=== PATIENT | male | born 1950 | race Two or more races ===

== ENCOUNTER 2024-06-21 20:36 | Emergency (ER) | payer MEDICARE, OTHER ==
[~2024-06-21] VITALS: Ht 165.1 cm; Wt 72.7 kg
--- NOTE | 2024-06-21 21:28 | ED.PDOC ---
Altered Mental Status HPI Comments 73 y.o male with PMHx of DM and Leukemia, presents to the ED via EMS for an evaluation of ALOC. EMS states patient's family called 911 after reporting that patient has been altered since 1229 and is only alert to self on scene. Family reported patient had a fall back in April of 2024, became weak on the left side, had another fall recently about a week ago which increased his weakness and was complaining of neck, back and pelvic pain. Patient was placed in a C- collar by EMS on scene for stability. Upon ED arrival, patient is altered and is unable to determine pain region or rate at this time. Chief Complaint: ALOC Time Seen by MD: 21:05 Reviewed Notes: Nurses Notes, Therapist'S Assistant Notes, Medications, Allergies Information Source: Emergency Med Personnel Mode of Arrival: EMS Severity: Moderate Timing: Hours Duration: Since onset Quality: Decreased Alertness, Change in Behavior Recent: Other History of: Diabetes Associated Signs and Symptoms: Other Past Medical History PAST MEDICAL HISTORY: Cancer, DM Surgical History: Unknown Family History Family History: Reviewed,noncontributory to illness Social History Smoker: Non-Smoker Alcohol: Denies ETOH Use Drugs: Denies Drug Use Lives In: Home Unable to Obtain due to: Altered Mental Status Physical Exam General Appearance: No Apparent Distress, Normal HEENT: Normal ENT Inspection, Pharynx Normal, TMs Normal Neck: Full Range of Motion, Non-Tender, Normal, Normal Inspection Respiratory: Chest Non-Tender, Lungs Clear, No Accessory Muscle Use, No Respiratory Distress, Normal Breath Sounds Cardiovascular: No Edema, No JVD, No Murmur, No Gallop, Normal Peripheral Pulses, Regular Rate/Rhythm Breast Exam: Deferred Gastrointestinal: No Organomegaly, Non Tender, No Pulsatile Mass, Normal Bowel Sounds, Soft Genitalia: Deferred Pelvic: Deferred Rectal: Deferred Extremities: No calf tenderness, Normal capillary refill, Normal inspection, Normal range of motion, Non-tender, No pedal edema Musculoskeletal : Apperance: Normal Neurologic: Alert, track laborer II-XII nml as Tested, Normal Affect, Normal Mood, No Sensory Deficits, Other (left sided weakness ) Cerebellar Function: Normal Reflexes: Normal Skin: Bruises (left eyebrow ) Lymphatic: No Adenopathy Was a procedure done? Was a procedure done?: No Differential Diagnosis (ALOC) Differential Diagnosis: Dehydration, Closed Head Injury, Mass Lesion X-Ray, Labs, Meds, VS Vital Signs Date Time Temp Pulse Resp B/P (MAP) Pulse Ox O2 Delivery O2 Flow Rate FiO2 06/21/24 23:00 Room Air* 0 21 06/21/24 20:50 98.8 108 20 148/60 (89) 98 Lab Test 06/21/24 21:35 Range/Units White Blood Count 7.2 4.4-10.8 10^3/uL Red Blood Count 3.24 L 4.5-5.90 10^6/uL Hemoglobin 8.0 L 13.5-17.5 g/dL Hematocrit 26.0 L 41.0-53.0 % Mean Corpuscular Volume 80.2 80.0-100.0 fL Mean Corpuscular Hemoglobin 24.8 L 28.0-32.0 pg Mean Corpuscular Hemoglobin Concent 31.0 L 32.0-36.0 g/dL Red Cell Distribution Width 20.8 H 11.8-14.3 % Platelet Count 121 L 140-450 10^3/uL Mean Platelet Volume 8.6 6.9-10.8 fL Neutrophils (%) (Auto) 37.0-80.0 % Lymphocytes (%) (Auto) 10.0-50.0 % Monocytes (%) (Auto) 0.0-12.0 % Basophils (%) (Auto) 0.0-2.0 % Neutrophils # (Auto) 1.6-8.6 10 ^3/uL Lymphocytes # (Auto) 0.4-5.4 10 ^3/uL Monocytes # (Auto) 0-1.3 10 ^3/uL Differential Total Cells Counted 100.0 100 Immature Granulocytes % 2 Neutrophils % (Manual) 66 37.0-80.0 Band Neutrophils % (Manual) 0 Lymphocytes % (Manual) 13 10.0-50.0 Monocytes % (Manual) 21 H 0-12 Eosinophils % (Manual) 0 0-7 Basophils % (Manual) 0 0.0-2.0 Metamyelocytes % (manual) 0 Myelocytes % (Manual) 0 Promyelocytes % (Manual) 0 Blast Cells % (Manual) 0 Reactive Lymphocytes 0 Platelet Estimate Decreased Large Platelets Few Hypochromasia (manual) Slight Anisocytosis (manual) Moderate Sodium Level 138 136-145 mmol/L Potassium Level 4.3 3.5-5.1 mmol/L Chloride Level 103 98-107 mmol/L Carbon Dioxide Level 27 20-31 mmol/L Anion Gap 8 5-15 Blood Urea Nitrogen 16 9-23 mg/dL Creatinine 0.61 L 0.700-1.30 mg/dL Glomerular Filtration Rate Calc 100 >90 mL/min BUN/Creatinine Ratio 26.2 H 10.0-20.0 Serum Glucose 185 H 74-106 mg/dL Calcium Level 9.5 8.7-10.4 mg/dL Total Bilirubin 0.9 0.2-1.0 mg/dL Aspartate Amino Transferase (AST) 16 13-40 U/L Alanine Aminotransferase (ALT) < 9 7-40 U/L Alkaline Phosphatase 118 H 46-116 U/L Ammonia < 10 L 11-32 umol/L Total Protein 6.7 5.7-8.2 g/dL Albumin 3.5 3.2-4.8 g/dL X-Ray, Labs, Meds, VS Comment CT head CT scan shows large subdural hematoma noted on the right side measuring approximately 3 cm. There is a 8 mm leftward midline shift. Spoke with Dr. Novoa at [facility], they will accept transfer for higher level of care Patient will be transferred with the [facility] air unit. Time of 1ST Reevaluation: 21:19 Reevaluation 1ST: Improved Patient Education/Counseling: Diagnosis, Treatment, Other (patient is altered) Family Education/Counseling: Diagnosis, No Family Present Departure 1 Departure Time of Disposition: 23:37 Impression: Primary Impression: Altered mental status Qualified Codes: R41.0 - Disorientation, unspecified Additional Impression: Subdural hematoma Disposition: 04 INTERMEDIATE CARE FACILITY Condition: Guarded Critical Care Note Critical Care Time?: No Stability Stability form required: No I personally scribed for ROCIO PIERRE ([email or web address]) on 06/21/24 at 21:28. Electronically submitted by Venice Graff ([facility]). ROCIO PIERRE Jun 21, 2024 21:28
[2024-06-21 21:55] LABS: Mean Corpuscular Hemoglobin 24.8 pg (28.0-32.0); Mean Corpuscular Volume 80.2 fL (80.0-100.0); Platelet Count (auto) 121 10^3/uL (140-450); Red Blood Cells 3.24 10^6/uL (4.5-5.90); White Blood Cell 7.2 10^3/uL (4.4-10.8)
[2024-06-21 21:56] LABS: Red Cell Distribution Width 20.8 % (11.8-14.3)
[2024-06-21 21:57] LABS: Band Neutrophils % (manual) 0; Basophils % (manual) 0 (0.0-2.0); Blast Cells 0; Eosinophils % (manual) 0 (0-7); Metamyelocytes % 0; Myelocytes % 0; Promyelocytes % 0; Reactive Lymphocytes 0
[2024-06-21 22:04] LABS: Alanine Aminotransferase < 9 U/L (7-40); Albumin 3.5 g/dL (3.2-4.8); Alkaline Phosphatase 118 U/L (46-116); Anion Gap 8 (5-15); Aspartate Aminotransferase 16 U/L (13-40); BUN/Creatinine Ratio 26.2 (10.0-20.0); Bilirubin, Total 0.9 mg/dL (0.2-1.0); Blood Urea Nitrogen 16 mg/dL (9-23); Calcium 9.5 mg/dL (8.7-10.4); Carbon Dioxide 27 mmol/L (20-31); Chloride 103 mmol/L (98-107); Glucose 185 mg/dL (74-106); Potassium 4.3 mmol/L (3.5-5.1); Sodium 138 mmol/L (136-145); Total Protein 6.7 g/dL (5.7-8.2)
--- NOTE | 2024-06-21 22:29 | DVH ---
EXAM: CT HEAD WITHOUT CONTRAST INDICATION: aloc TECHNIQUE: CT of the head without intravenous contrast. Radiation Dose : 1. Head: CT Dose: CTDI volume is 63.04 mGy. Dose-length product is 1771.51 mGy*cm The dose indicators for CT are the volume Computed Tomography (CT) Dose Index (CTDIvol) and the Dose Length Product (DLP), and are measured in units of mGy and mGy-cm, respectively. These indicators are not patient dose, but values generated from the CT scanner acquisition factors. The report includes radiation exposure data for exposures received during this examination. COMPARISON: None FINDINGS: Dense acute right subdural hematoma measuring up to 3 cm in diameter. There is effacement of the fredis cent sulci and 8 mm leftward midline shift. Patchy periventricular and subcortical white matter hypoattenuation is nonspecific but may be related to small vessel ischemic disease. The visualized paranasal sinuses and mastoid air cells are clear. The surrounding soft tissues and osseous structures are unremarkable. IMPRESSION: 1. Dense acute right subdural hematoma measuring up to 3 cm in diameter with mass-effect including an 8 mm leftward midline shift. 2. Radiation optimization: All CT scans at this facility use at least one of these dose optimization techniques: automated exposure control mA and/or kV adjustment per patient size (includes targeted e xams where dose is matched to clinical indication) or iterative reconstruction. Critical findings discussed with SALBADOR Pacheco by Dr. Major via phone on 06/21/2024 10:25 PM.
--- NOTE | 2024-06-21 22:33 | DVH ---
EXAM: CT CERVICAL WITHOUT CONTRAST INDICATION: aloc EXAM DATE: 06/21/2024 10:04 PM COMPARISON: None TECHNIQUE: Multiple axial CT images of the cervical spine were obtained using bone algorithm. Axial a nd coronal reformatting was done. Bone and soft tissue windows were reviewed. Radiation Dose Information: CT Dose: CTDI volume is 23 mGy. Dose-length product is 1772 mGy*cm FINDINGS: The cervical alignment is intact. No acute cervical spine fracture is identified. The vertebral body heights are intact. No suspicious osseous lesions are identified. Moderate degenerative changes throughout the cervical spine There is no prevertebral soft tissue swelling. IMPRESSION: 1. No evidence of acute cervical spine fracture or traumatic malalignment. 2. All CT scans at this medical facility are performed using dose modulation techniques as appropriat e to a performed exam including the following: Automated exposure control was utilized; adjustment of the MA and/or KV according to patient size; and use of iterative reconstruction technique.
[2024-06-21 22:34] LABS: Lymphocytes % (manual) 13 (10.0-50.0); Monocytes % (manual) 21 (0-12)
[2024-06-21 22:35] LABS: Platelet Estimate Decreased
[2024-06-21 22:36] LABS: Anisocytosis Moderate
[2024-06-21 22:37] LABS: Hypochromia Slight; Large Platelets FEW
[2024-06-21 23:51] LABS: Urine Bacteria None Seen /hpf (None Seen)
[2024-06-22 00:18] LABS: Amphetamine Screen, Urine Neg (NEGATIVE); Barbiturate Scree,Urine Neg (NEGATIVE); Cannabinoid Screen, Urine Neg (NEGATIVE); Cocaine Screen, Urine Neg (NEGATIVE); Opiate Scree,Urine Neg (NEGATIVE); Phencyclidine Screen, Urine Neg (NEGATIVE)
[2024-06-22 00:29] LABS: Urine Blood Negative /uL (Negative); Urine Clarity Clear (Clear); Urine Color Yellow (Yellow); Urine Mucus FEW (None Seen); Urine Protein, UAD 1+ (Negative); Urine Specific Gravity 1.027 (1.001-1.035); Urine Squamous Epithelial Cell FEW /hpf (<5); Urine Urobilinogen 12 mg/dL (Negative); Urine WBC 1 /hpf (0 - 3); Urine pH 6.5 (5.0-9.0)
[2024-06-22 01:02] VITALS: BP 145/59; PULSE 106; RESP 24; TEMP 98; O2SAT 96
[2024-06-22 01:49] LABS: Benzodiazephine Screen, Urine Neg (NEGATIVE)
== END 2024-06-22 01:10 | disposition short-term general hospital (02) ==
LOC: ER 20:36 → EDBD 20:36 → ER 06-22 01:10
DX: S06.5X0A Traumatic subdural hemorrhage without loss of consciousness, initial encounter (principal); R41.82 Altered mental status, unspecified; E11.9 Type 2 diabetes mellitus without complications; Z79.899 Other long term (current) drug therapy; W18.09XA Striking against other object with subsequent fall, initial encounter; Y93.89 Activity, other specified; Y92.89 Other specified places as the place of occurrence of the external cause; Y99.8 Other external cause status
CPT/HCPCS: 36415; 70450; 72125; 80053; 80307; 81001; 82140; 82947; 85007; 85027